=== PATIENT | female | born 1965 | race Caucasian/White ===

== ENCOUNTER 2018-03-15 07:33 | Emergency (ER) | payer OTHER ==
[~2018-03-15] VITALS: Ht 177.8 cm; Wt 83.9 kg
[~2018-03-15 07:33] MED LIST: KLONOPIN1 MG; TOPAMAX 100 MG100 MG
[2018-03-15 08:07] LABS: ABSOLUTE BASOPHILS 0.1 thou/uL (0.0-0.2); ABSOLUTE EOSINOPHILS 0.3 thou/uL (0.0-0.7); ABSOLUTE LYMPHOCYTES 2.1 thou/uL (0.8-5.3); ABSOLUTE MONOCYTES 0.4 thou/uL (0.0-1.2); ABSOLUTE NEUTROPHILS 4.7 thou/uL (1.6-8.1); BASOPHILS 0.8 %; EOSINOPHILS 3.5 %; HEMATOCRIT 45.8 % (37.0-47.0); HEMOGLOBIN 15.8 gm/dL (12.0-15.0); MCH 29.9 pg (26.0-34.0); MCHC 34.5 g/dL (28.0-37.0); MCV 86.5 fL (80.0-100.0); MONOCYTES 5.2 %; MPV 8.3 fl. (7.2-11.1); NUCLEATED RBCS 0 /100WBC; PLATELET COUNT* 233 thou/uL (150-400); POLYS 62.5 %; RBC 5.29 mil/uL (4.20-5.00); RDW-CV 12.9 % (10.5-14.5); WBC 7.5 thou/uL (4.0-11.0)
[2018-03-15 08:12] LABS: ANION GAP 12 mmol/L (7-16); BUN 13 mg/dL (7-18); CALCIUM 8.6 mg/dL (8.5-10.1); CHLORIDE 104 mmol/L (98-107); CO2 23 mmol/L (21-32); CREATININE 0.8 mg/dL (0.6-1.3); GLUCOSE 97 mg/dL (70-99); POTASSIUM 3.8 mmol/L (3.5-5.1); SODIUM 139 mmol/L (136-145)
[2018-03-15 08:18] LABS: PROTIME 9.9 Seconds (9.20-11.50)
[2018-03-15 08:25] LABS: ALBUMIN 4.1 g/dL (3.4-5.0); ALKALINE PHOSPHATASE 87 U/L (46-116); LIPASE 190 U/L (73-393); NT-PRO BRAIN NAT PEPTIDE 55 pg/mL (<300); SGOT 16 U/L (15-37); SGPT 36 U/L (30-65); TOTAL BILIRUBIN 0.8 mg/dL (<0.1-1.0); TOTAL PROTEIN 7.2 g/dL (6.4-8.2); TROPONIN-I LEVEL <0.06 ng/mL (<0.06)
[2018-03-15 09:43] LABS: URINE BILIRUBIN NEGATIVE (Negative); URINE BLOOD NEGATIVE (Negative); URINE CLARITY CLEAR; URINE COLOR YELLOW; URINE GLUCOSE-RANDOM NEGATIVE (Negative); URINE KETONES NEGATIVE (Negative); URINE LEUKOCYTES-REFLEX NEGATIVE (Negative); URINE NITRITE-REFLEX NEGATIVE (Negative); URINE PROTEIN NEGATIVE (Negative); URINE SPECIFIC GRAVITY 1.025 (1.005-1.030); URINE UROBILINOGEN 0.2 E.U./dl (0.2-1.0)
[2018-03-15] MEDS ORDERED: PERCOCET 5-3251 EACH PO (09:54)
[2018-03-15 10:05] VITALS: BP 137/80
--- NOTE | 2018-03-16 18:02 | EKG ---
[place] [address] ELECTROCARDIOGRAM REPORT Name: LEW TEJEDA Room: [facility]#: [id number] Admission: 03/15/18 Attend Phys: Discharge: 03/15/18 Date of : 61 Report #: [id number] THIS REPORT FOR: //name// [place] [facility] Test Date: 2018-03-15 Test Time: 08:16:22 Pat Name: LEW TEJEDA Department: Room: Gender: F Cnc Supervisor: KELY : 1965 Requested By: Pollo Isidro Order Number: [id number] MD: Corwin Perdomo Measurements Intervals [place] Rate: 76 P: 46 NM: 162 QRS: 52 QRSD: 96 T: 60 QT: 391 QTc: 440 Interpretive Statements Sinus rhythm Low voltage, precordial leads RSR' in V1 or V2, right VCD or RVH Compared to ECG 01/24/2014 06:11:34 Right ventricular hypertrophy now present RSR' in V1 or V2 now present Myocardial infarct finding no longer present Electronically Signed On 03-16-2018 18:01:59 [employer] by Corwin Perdomo [email or web address] <ELECTRONICALLY SIGNED> By: Corwin Perdomo MD, FACC 03/16/18 1801 5 5 Corwin Perdomo MD, FAC /EPI
== END 2018-03-15 10:06 | disposition home or self-care (01) ==
LOC: M.ERS 07:33
PROVIDERS: Emergency Medicine
DX: R10.11 Right upper quadrant pain (principal); R07.81 Pleurodynia; Z88.5 Allergy status to narcotic agent; Z88.6 Allergy status to analgesic agent; Z90.49 Acquired absence of other specified parts of digestive tract; Z90.710 Acquired absence of both cervix and uterus